=== PATIENT | female | born 1955 | race Caucasian/White ===

== ENCOUNTER 2019-05-24 08:16 | Day surgery (SDC) | payer BC ==
[2019-05-23 09:32] VITALS: BMI 21.8
[2019-05-24 10:16] VITALS: BP 120/70; PULSE 68; TEMP 97.9
== END 2019-05-24 10:16 | disposition home or self-care (01) ==
LOC: FASU-ENDO 08:16
PROVIDERS: ATTEND Internal Medicine Gastroenterology
PROC: 0DJD8ZZ Inspection of Lower Intestinal Tract, Via Natural or Artificial Opening Endoscopic (ICD-10-PCS; principal; 2019-05-24 08:58)
DX: Z12.11 Encounter for screening for malignant neoplasm of colon (principal)